=== PATIENT | male | born 1955 | race Caucasian/White ===

== ENCOUNTER 2020-10-17 13:29 | Inpatient (IN) ==
[2020-10-17] MEDS ORDERED: GI COCKTAIL ED USE PO ONE (13:49)
[2020-10-17] MEDS ORDERED: FAMOTIDINE 20MG IV PUSH 20 MG/5 ML SYR IV STA (13:49)
[2020-10-17] MEDS ORDERED: SODIUM CHLORIDE 0.9% 1000ML 1,000 ML IV SCH (14:00)
--- NOTE | 2020-10-17 14:05 | Emergency Department Note ---
History of Present Illness General Chief Complaint: Abdominal Pain Stated Complaint: ABD PAIN,LOWER BACK PAIN Time Seen by Provider: 10/17/20 13:37 Source: patient Mode of arrival: ambulatory Limitations: no limitations History of Present Illness Provider Complaint: abdominal pain Onset (ago): 1 week(s) Pain Consistency: constant Location: epigastric Radiation: back Migration to: no migration Severity: moderate Maximum Pain Intensity: 5 Current Pain Intensity: 5 Quality: + cramping and + other (spasms) Relieved By: + nothing Exacerbated By: + eating and + other (bending over, lying flat) Associated Symptoms: + nausea and + anorexia Treatments prior to arrival: none This 64-year-old male patient presents to the emergency department today for evaluation of 1 week long history of intermittent epigastric pain. The patient states his pain is worse with eating, bending over, and lying flat. He states it is like a spasming sensation in his epigastrium. He describes an achiness intermittently when not experiencing spasms. The patient states he has been very thirsty and has had decreased appetite over the past 3 to 4 days. He states earlier today at 1030, he ate half a chicken cheese steak. By 1230, he developed severe epigastric pain which was radiating to his back, then he developed diarrhea. Denies any fever or chills. No history of abdominal surgeries. No history of pancreatitis. The patient does normally drink 3-4 beers per day, but has not had any in 4 to 5 days since his symptoms have been worsening. He has not recently been on any antibiotics. He reports his acid reflux has been really flaring up recently and has not responded to his normal omeprazole. He denies any chest pain or dyspnea. No exertional symptoms. No vomiting or hematemesis. Bowel movements have otherwise been normal. Home Medications Medication Instructions Recorded Confirmed Type omeprazole 20 mg PO DAILY 10/17/20 10/17/20 History Allergies Allergy/AdvReac Type Severity Reaction Status Date / Time Penicillins Allergy HIVES Verified 10/17/20 15:33 Past Med/Surg History Medical History (Updated 10/17/20 @ 17:12 by Jeniffer Alamo PA-C) GERD (gastroesophageal reflux disease) Hypertension Surgical History (Updated 10/17/20 @ 17:32 by GERDA Jackson) No significant past surgical history Social History (Updated 10/17/20 @ 14:04 by Jeniffer Alamo PA-C) Smoking Status: Never smoker Hx Alcohol Use: Yes Alcohol type: beer Alcohol Intake Frequency: 4 or More x per/Week Alcohol Intake Frequency Comment: 3-4 beers/day Preferred Language: Lao Feels Safe at Home: Yes Review of Systems A total of 10 systems reviewed and were otherwise negative Physical Exam Vital Signs: Vital Signs - 24 hr 10/17/20 13:30 10/17/20 14:31 10/17/20 14:34 Temperature 36.9 C Temperature Source Oral Pulse Rate 129 H 111 H Pulse Rate [Apical ] 110 H Pulse Rate from Sp O2 Sensor Pulse Rhythm Regular Pulse Rhythm [Apic al] Pulse Strength Normal Pulse Strength [Ap ical] Respiratory Rate 16 20 20 Respiratory Effort / Characteristics Non-Labored Non-Labored Sponta neous Respiratory Depth Normal Normal Respiratory Patter n Regular Regular Blood Pressure 213/103 H Blood Pressure [Ri ght Arm] 193/147 H Blood Pressure Lorraine n 139 Blood Pressure Lorraine n [Right Arm] 162 Blood Pressure Pos ition Sitting Blood Pressure Pos ition [Right Arm] Pulse Oximetry 98 99 99 Oxygen Delivery Me thod Room Air Room Air Room Air Oxygen Flow Rate Sepsis Recent Feve r Within 48 Hours No Sepsis New/Unexpla ined Change in Men amish Status N/A Sepsis Action Take n by Nursing No Action Required 10/17/20 14:36 10/17/20 14:39 10/17/20 14:55 Temperature Temperature Source Pulse Rate 110 H 107 H 138 H Pulse Rate [Apical ] Pulse Rate from Sp O2 Sensor 111 H 105 H 138 H Pulse Rhythm Pulse Rhythm [Apic al] Pulse Strength Pulse Strength [Ap ical] Respiratory Rate 17 18 17 Respiratory Effort / Characteristics Respiratory Depth Respiratory Patter n Blood Pressure 210/120 H 192/135 H Blood Pressure [Ri ght Arm] Blood Pressure Lorraine n 139 155 Blood Pressure Lorraine n [Right Arm] Blood Pressure Pos ition Blood Pressure Pos ition [Right Arm] Pulse Oximetry 98 98 100 Oxygen Delivery Me thod Oxygen Flow Rate Sepsis Recent Feve r Within 48 Hours Sepsis New/Unexpla ined Change in Men amish Status Sepsis Action Take n by Nursing 10/17/20 14:56 10/17/20 14:58 10/17/20 15:00 Temperature Temperature Source Pulse Rate 122 H 117 H Pulse Rate [Apical ] 120 H Pulse Rate from Sp O2 Sensor 123 H 115 H Pulse Rhythm Pulse Rhythm [Apic al] Pulse Strength Pulse Strength [Ap ical] Respiratory Rate 22 16 20 Respiratory Effort / Characteristics Respiratory Depth Respiratory Patter n Blood Pressure 201/115 H 205/123 H Blood Pressure [Ri ght Arm] 201/115 H Blood Pressure Lorraine n 150 138 Blood Pressure Lorraine n [Right Arm] 143 Blood Pressure Pos ition Blood Pressure Pos ition [Right Arm] Pulse Oximetry 100 100 100 Oxygen Delivery Me thod Nasal Cannula Oxygen Flow Rate 3 Sepsis Recent Feve r Within 48 Hours Sepsis New/Unexpla ined Change in Men amish Status Sepsis Action Take n by Nursing 10/17/20 15:01 10/17/20 15:05 10/17/20 15:10 Temperature Temperature Source Pulse Rate 109 H 115 H 113 H Pulse Rate [Apical ] Pulse Rate from Sp O2 Sensor 111 H 115 H 113 H Pulse Rhythm Pulse Rhythm [Apic al] Pulse Strength Pulse Strength [Ap ical] Respiratory Rate 17 14 16 Respiratory Effort / Characteristics Respiratory Depth Respiratory Patter n Blood Pressure 209/111 H 210/114 H Blood Pressure [Ri ght Arm] Blood Pressure Lorraine n 153 138 Blood Pressure Lorraine n [Right Arm] Blood Pressure Pos ition Blood Pressure Pos ition [Right Arm] Pulse Oximetry 100 100 100 Oxygen Delivery Me thod Oxygen Flow Rate Sepsis Recent Feve r Within 48 Hours Sepsis New/Unexpla ined Change in Men amish Status Sepsis Action Take n by Nursing 10/17/20 15:15 10/17/20 15:22 10/17/20 15:25 Temperature Temperature Source Pulse Rate 114 H 118 H 112 H Pulse Rate [Apical ] Pulse Rate from Sp O2 Sensor 113 H 118 H 111 H Pulse Rhythm Pulse Rhythm [Apic al] Pulse Strength Pulse Strength [Ap ical] Respiratory Rate 17 16 21 Respiratory Effort / Characteristics Respiratory Depth Respiratory Patter n Blood Pressure 197/117 H 213/125 H 190/115 H Blood Pressure [Ri ght Arm] Blood Pressure Lorraine n 143 167 138 Blood Pressure Lorraine n [Right Arm] Blood Pressure Pos ition Blood Pressure Pos ition [Right Arm] Pulse Oximetry 100 100 100 Oxygen Delivery Me thod Oxygen Flow Rate Sepsis Recent Feve r Within 48 Hours Sepsis New/Unexpla ined Change in Men amish Status Sepsis Action Take n by Nursing 10/17/20 15:30 10/17/20 15:31 10/17/20 15:35 Temperature Temperature Source Pulse Rate 101 H 101 H 100 H Pulse Rate [Apical ] 99 H Pulse Rate from Sp O2 Sensor 102 H 100 H 100 H Pulse Rhythm Pulse Rhythm [Apic al] Regular Pulse Strength Pulse Strength [Ap ical] Normal Respiratory Rate 19 18 20 Respiratory Effort / Characteristics Non-Labored Sponta neous Respiratory Depth Normal Respiratory Patter n Blood Pressure 190/113 H 182/109 H Blood Pressure [Ri ght Arm] 182/109 H Blood Pressure Lorraine n 143 136 Blood Pressure Lorraine n [Right Arm] 133 Blood Pressure Pos ition Blood Pressure Pos ition [Right Arm] Sitting Pulse Oximetry 100 100 100 Oxygen Delivery Me thod Nasal Cannula Oxygen Flow Rate 3 Sepsis Recent Feve r Within 48 Hours Sepsis New/Unexpla ined Change in Men amish Status Sepsis Action Take n by Nursing 10/17/20 15:40 10/17/20 15:45 10/17/20 15:52 Temperature Temperature Source Pulse Rate 103 H 113 H 103 H Pulse Rate [Apical ] Pulse Rate from Sp O2 Sensor 103 H 114 H Pulse Rhythm Pulse Rhythm [Apic al] Pulse Strength Pulse Strength [Ap ical] Respiratory Rate 21 20 Respiratory Effort / Characteristics Respiratory Depth Respiratory Patter n Blood Pressure 201/113 H 230/168 H 228/128 H Blood Pressure [Ri ght Arm] Blood Pressure Lorraine n 149 197 150 Blood Pressure Lorraine n [Right Arm] Blood Pressure Pos ition Blood Pressure Pos ition [Right Arm] Pulse Oximetry 100 100 Oxygen Delivery Me thod Oxygen Flow Rate Sepsis Recent Feve r Within 48 Hours Sepsis New/Unexpla ined Change in Men amish Status Sepsis Action Take n by Nursing 10/17/20 15:55 10/17/20 16:00 10/17/20 16:01 Temperature Temperature Source Pulse Rate 101 H 104 H 104 H Pulse Rate [Apical ] Pulse Rate from Sp O2 Sensor 101 H Pulse Rhythm Pulse Rhythm [Apic al] Pulse Strength Pulse Strength [Ap ical] Respiratory Rate 19 23 18 Respiratory Effort / Characteristics Respiratory Depth Respiratory Patter n Blood Pressure 211/124 H 219/134 H Blood Pressure [Ri ght Arm] Blood Pressure Lorraine n 159 170 Blood Pressure Lorraine n [Right Arm] Blood Pressure Pos ition Blood Pressure Pos ition [Right Arm] Pulse Oximetry 100 Oxygen Delivery Me thod Oxygen Flow Rate Sepsis Recent Feve r Within 48 Hours Sepsis New/Unexpla ined Change in Men amish Status Sepsis Action Take n by Nursing 10/17/20 16:13 10/17/20 16:15 10/17/20 16:20 Temperature Temperature Source Pulse Rate 101 H 102 H 103 H Pulse Rate [Apical ] Pulse Rate from Sp O2 Sensor Pulse Rhythm Pulse Rhythm [Apic al] Pulse Strength Pulse Strength [Ap ical] Respiratory Rate 17 13 16 Respiratory Effort / Characteristics Respiratory Depth Respiratory Patter n Blood Pressure 231/137 H 230/147 H 236/139 H Blood Pressure [Ri ght Arm] Blood Pressure Lorraine n 177 171 159 Blood Pressure Lorraine n [Right Arm] Blood Pressure Pos ition Blood Pressure Pos ition [Right Arm] Pulse Oximetry Oxygen Delivery Me thod Oxygen Flow Rate Sepsis Recent Feve r Within 48 Hours Sepsis New/Unexpla ined Change in Men amish Status Sepsis Action Take n by Nursing 10/17/20 16:25 10/17/20 16:30 10/17/20 16:31 Temperature Temperature Source Pulse Rate 99 H 99 H 98 H Pulse Rate [Apical ] Pulse Rate from Sp O2 Sensor Pulse Rhythm Pulse Rhythm [Apic al] Pulse Strength Pulse Strength [Ap ical] Respiratory Rate 9 L 18 16 Respiratory Effort / Characteristics Respiratory Depth Respiratory Patter n Blood Pressure 210/138 H 227/139 H Blood Pressure [Ri ght Arm] Blood Pressure Lorraine n 153 164 Blood Pressure Lorraine n [Right Arm] Blood Pressure Pos ition Blood Pressure Pos ition [Right Arm] Pulse Oximetry Oxygen Delivery Me thod Oxygen Flow Rate Sepsis Recent Feve r Within 48 Hours Sepsis New/Unexpla ined Change in Men amish Status Sepsis Action Take n by Nursing 10/17/20 16:35 10/17/20 16:40 10/17/20 16:45 Temperature Temperature Source Pulse Rate 100 H 100 H 101 H Pulse Rate [Apical ] Pulse Rate from Sp O2 Sensor Pulse Rhythm Pulse Rhythm [Apic al] Pulse Strength Pulse Strength [Ap ical] Respiratory Rate 14 19 20 Respiratory Effort / Characteristics Respiratory Depth Respiratory Patter n Blood Pressure 226/135 H 227/139 H 212/139 H Blood Pressure [Ri ght Arm] Blood Pressure Lorraine n 167 166 166 Blood Pressure Lorraine n [Right Arm] Blood Pressure Pos ition Blood Pressure Pos ition [Right Arm] Pulse Oximetry Oxygen Delivery Me thod Oxygen Flow Rate Sepsis Recent Feve r Within 48 Hours Sepsis New/Unexpla ined Change in Men amish Status Sepsis Action Take n by Nursing 10/17/20 16:50 Temperature Temperature Source Pulse Rate 100 H Pulse Rate [Apical ] Pulse Rate from Sp O2 Sensor Pulse Rhythm Pulse Rhythm [Apic al] Pulse Strength Pulse Strength [Ap ical] Respiratory Rate 15 Respiratory Effort / Characteristics Respiratory Depth Respiratory Patter n Blood Pressure 227/133 H Blood Pressure [Ri ght Arm] Blood Pressure Lorraine n 148 Blood Pressure Lorraine n [Right Arm] Blood Pressure Pos ition Blood Pressure Pos ition [Right Arm] Pulse Oximetry Oxygen Delivery Me thod Oxygen Flow Rate Sepsis Recent Feve r Within 48 Hours Sepsis New/Unexpla ined Change in Men amish Status Sepsis Action Take n by Nursing Physical Exam: VITALS: Vitals are noted on the nurse's note and reviewed by m yself. Patient is tachycardic and hypertensive. O2 saturation 98% on room air. Temp 36.9 C. GENERAL: This is a 64-year-old white male, in no acute distress, nondiaphoretic, well-developed well-nourished. SKIN: The skin was without rashes, erythema, edema, or bruising. There is no tenting of the skin. Capillary refill less than 2 seconds. HEAD: Normocephalic atraumatic. EYES: Conjunctivae without injection, sclerae without icterus. NECK: Supple without nuchal rigidity. No lymphadenopathy. Cervical spine is nontender. No JVD. HEART: Regular rate and rhythm without murmurs gallops or rubs. LUNGS: Clear to auscultation bilaterally without wheezes, rales or rhonchi. No retractions or accessory muscle use. ABDOMEN: Positive bowel sounds x 4. Normal tympanic percussion. Epigastric tenderness to palpation. Abdomen otherwise soft, nontender, without masses or organomegaly. Anderson sign negative. No guarding or rebound tenderness. No CVA tenderness bilaterally. MUSCULOSKELETAL: No muscle atrophy, erythema, or edema noted. Full range of motion without joint tenderness in all extremities. No tenderness to palpation. Normal gait. Strength 5/5 throughout. NEURO: Patient was alert and oriented to person place and time. No focal neurological deficits. Course Course The patient was seen and evaluated as above. An order was placed for continuous cardiac monitoring. The monitor shows a sinus tachycardia at a rate of 120 beats per minute. IV access obtained, labs drawn. Patient medicated with IV fluids, Zofran, Pepcid, GI cocktail. Chest x-ray performed and reviewed by myself and radiologist as noted. I was notified by Dr. Alvarez that he was called to the room due to significant tachycardia and SVT. He did order adenosine and noted the patient's tachycardia improved from 185 to 130 bpm is a sinus tachycardia. Labs reviewed by myself. We did add a magnesium and TSH at this time. The patient was reassessed. He was given 10 mg IV labetalol due to ongoing hypertension and tachycardia. He is feeling somewhat better at this time, but now complains of spasming in his legs intermittently. I discussed the case with the e commerce manager. I discussed the case with GERDA Jackson with [facility] hospitalist group. She did agree to see and evaluate the patient for admission. She did request that I contact Dr. Talamantes, all purpose clerk, regarding the patient. I did speak with Dr. Talamantes. He did see and evaluate the patient. Please see hospitalist and cardiology dictation regarding ongoing management care of this patient. Administered Medications Discontinued Medications Adenosine (Adenosine Iv Soln 3 Mg/Ml 2 Ml Vial) Confirm Administered Dose 6 mg IV .STK-MED ONE Stop: 10/17/20 14:51 Last Admin: 10/17/20 14:57 Dose: 6 mg Documented by: [id number] Hydrox/Mg Hydrox/Simethicone (Gi Cocktail Ed Use) 1 dose PO ONE ONE Stop: 10/17/20 13:50 Last Admin: 10/17/20 14:30 Dose: 1 dose Documented by: [id number] Sodium Chloride (Nss 1000ml) 1,000 mls @ 999 mls/hr IV .Q1H1M [id number] Stop: 10/17/20 15:00 Last Infusion: 10/17/20 15:29 Dose: 0 mls/hr Documented by: [id number] Admin: 10/17/20 14:30 Dose: 999 mls/hr Documented by: [id number] Famotidine (Pepcid 20mg Iv Push) 20 mg in 5 mls @ 2.5 mls/min IV NOW STA Stop: 10/17/20 13:50 Last Admin: 10/17/20 14:30 Dose: 2.5 mls/min Documented by: [id number] Ioversol (Optiray 320 125ml) 116 ml IV ONCE ONE Stop: 10/17/20 17:18 Last Admin: 10/17/20 17:18 Dose: 116 ml Documented by: [id number] Labetalol HCl (Labetalol Hcl Iv 5 Mg/Ml 20ml) 10 mg IV NOW STA Stop: 10/17/20 15:13 Last Admin: 10/17/20 15:23 Dose: 10 mg Documented by: [id number] Cosigned by: [id number] Labetalol HCl (Labetalol Hcl Iv 5 Mg/Ml 20ml) 10 mg IV NOW STA Stop: 10/17/20 15:56 Last Admin: 10/17/20 16:20 Dose: 10 mg Documented by: [id number] Cosigned by: [id number] Ondansetron HCl (Ondansetron Inj 2 Mg/Ml 2 Ml Vial) Confirm Administered Dose 4 mg .ROUTE .STK-MED ONE Stop: 10/17/20 14:59 Last Admin: 10/17/20 15:00 Dose: 4 mg Documented by: [id number] Ondansetron HCl (Ondansetron Inj 2 Mg/Ml 2 Ml Vial) 4 mg IV NOW STA Stop: 10/17/20 15:00 Last Admin: 10/17/20 15:00 Dose: Not Given Documented by: [id number] Medical Decision Making Differential Diagnosis + peptic ulcer disease, + biliary pathology, + UTI, + obstruction, + mesenteric ischemia, + aortic pathology, + infections, + inflammatory bowel disease, + renal colic, + torsion (male), + epididymitis (male), + pelvic inflammatory disease (female), + abdominal pain, + appendicitis, + calculus of kidney, + constipation, + diverticulitis, + gastroenteritis, + pancreatitis and + small bowel obstruction cardiac etiology, among others were considered. Medical Records Attestation: I reviewed the patient's medical records. Home Medications Current Medication List: was personally reviewed by me Laboratory Data Attestation: I reviewed the patient's lab results. No leukocytosis, anemia, thrombocytopenia. Renal, hepatic function, and electrolytes without significant abnormality. Troponin negative. Lipase 207. Urinalysis negative for blood or evidence of infection. Trace ketones. Covid antigen testing negative. Result diagrams: 10/17/20 14:22 10/17/20 16:50 Lab Results 10/17/20 10/17/20 10/17/20 Range/Units 14:22 14:22 15:20 WBC 3.36 L (4.8-10.8) K/uL RBC 4.58 L (4.7-6.1) M/uL Hgb 14.5 (14.0-18.0) g/dL Hct 41.2 L (42-52) % MCV 90.0 (80-100) fL MCH 31.7 (25-34) pg MCHC 35.2 (32-36) g/dL RDW Std Deviation 41.8 (36.4-46.3) fL RDW Coeff of Indu 12.7 (11.5-14.5) % Plt Count 160 (130-400) K/uL MPV 11.7 H (7.4-10.4) fL Immature Gran % (Auto) 0.0 % Neut % (Auto) 59.2 % Lymph % (Auto) 27.7 % [place] % (Auto) 12.5 % Eos % (Auto) 0.3 % Baso % (Auto) 0.3 % Neut # (Auto) 1.99 (1.4-6.5) K/uL Lymph # (Auto) 0.93 L (1.2-3.4) K/uL [place] # (Auto) 0.42 (0.11-0.59) K/uL Eos # (Auto) 0.01 (0-0.5) K/uL Baso # (Auto) 0.01 (0-0.2) K/uL Immature Gran # (Auto) 0.00 (0.00-0.02) K/uL Sodium 137 (136-145) mmol/L Potassium (3.5-5.1) mmol/L Chloride 108 H (98-107) mmol/L Carbon Dioxide 21 (21-32) mmol/L Anion Gap 8.0 (3-11) BUN 21 H (7-18) mg/dl Creatinine 1.20 (0.6-1.4) mg/dl Est Cr Clr Drug Dosing 73.5 ml/min Est GFR ( Amer) 74.1 Est GFR (Non-Af Amer) 64.0 BUN/Creatinine Ratio 17.4 (10-20) Glucose 132 H (70-99) mg/dl Lactate (0.4-2.0) mmol/L Uric Acid (2.6-7.2) mg/dl Calcium 8.4 L (8.5-10.1) mg/dl Magnesium (1.8-2.4) mg/dl Total Bilirubin 0.5 (0.2-1) mg/dl AST (15-37) U/L ALT 41 (12-78) U/L Alkaline Phosphatase 84 (45-117) U/L Troponin I < 0.015 (0-0.045) ng/ml Total Protein 7.5 (6.4-8.2) gm/dl Albumin 3.3 L (3.4-5.0) gm/dl Globulin 4.2 H (2.5-4.0) gm/dl Albumin/Globulin Ratio 0.8 L (0.9-2) Lipase 207 (73-393) U/L TSH (0.300-4.500) uIu/ml Urine Color Yellow Urine Appearance Clear (Clear) Urine pH 5.5 (4.5-7.5) Ur Specific [place] 1.014 (1.000-1.030) Urine Protein Negative (Negative) Urine Glucose (UA) Negative (Negative) Urine Ketones Trace H (Negative) Urine Blood Negative (Negative) Urine Nitrite Negative (Negative) Urine Bilirubin Negative (Negative) Urine Urobilinogen Negative (Negative) Ur Leukocyte Esterase Negative (Negative) SARS-CoV-2 Ag (Rapid) (Negative) 10/17/20 10/17/20 10/17/20 Range/Units 16:01 16:50 16:50 WBC (4.8-10.8) K/uL RBC (4.7-6.1) M/uL Hgb (14.0-18.0) g/dL Hct (42-52) % MCV (80-100) fL MCH (25-34) pg MCHC (32-36) g/dL RDW Std Deviation (36.4-46.3) fL RDW Coeff of Indu (11.5-14.5) % Plt Count (130-400) K/uL MPV (7.4-10.4) fL Immature Gran % (Auto) % Neut % (Auto) % Lymph % (Auto) % [place] % (Auto) % Eos % (Auto) % Baso % (Auto) % Neut # (Auto) (1.4-6.5) K/uL Lymph # (Auto) (1.2-3.4) K/uL [place] # (Auto) (0.11-0.59) K/uL Eos # (Auto) (0-0.5) K/uL Baso # (Auto) (0-0.2) K/uL Immature Gran # (Auto) (0.00-0.02) K/uL Sodium (136-145) mmol/L Potassium 3.6 (3.5-5.1) mmol/L Chloride (98-107) mmol/L Carbon Dioxide (21-32) mmol/L Anion Gap (3-11) BUN (7-18) mg/dl Creatinine (0.6-1.4) mg/dl Est Cr Clr Drug Dosing ml/min Est GFR ( Amer) Est GFR (Non-Af Amer) BUN/Creatinine Ratio (10-20) Glucose (70-99) mg/dl Lactate (0.4-2.0) mmol/L Uric Acid 5.6 (2.6-7.2) mg/dl Calcium (8.5-10.1) mg/dl Magnesium 1.8 (1.8-2.4) mg/dl Total Bilirubin (0.2-1) mg/dl AST (15-37) U/L ALT (12-78) U/L Alkaline Phosphatase (45-117) U/L Troponin I (0-0.045) ng/ml Total Protein (6.4-8.2) gm/dl Albumin (3.4-5.0) gm/dl Globulin (2.5-4.0) gm/dl Albumin/Globulin Ratio (0.9-2) Lipase (73-393) U/L TSH 1.040 (0.300-4.500) uIu/ml Urine Color Urine Appearance (Clear) Urine pH (4.5-7.5) Ur Specific [place] (1.000-1.030) Urine Protein (Negative) Urine Glucose (UA) (Negative) Urine Ketones (Negative) Urine Blood (Negative) Urine Nitrite (Negative) Urine Bilirubin (Negative) Urine Urobilinogen (Negative) Ur Leukocyte Esterase (Negative) SARS-CoV-2 Ag (Rapid) Negative (Negative) 10/17/20 Range/Units 16:50 WBC (4.8-10.8) K/uL RBC (4.7-6.1) M/uL Hgb (14.0-18.0) g/dL Hct (42-52) % MCV (80-100) fL MCH (25-34) pg MCHC (32-36) g/dL RDW Std Deviation (36.4-46.3) fL RDW Coeff of Indu (11.5-14.5) % Plt Count (130-400) K/uL MPV (7.4-10.4) fL Immature Gran % (Auto) % Neut % (Auto) % Lymph % (Auto) % [place] % (Auto) % Eos % (Auto) % Baso % (Auto) % Neut # (Auto) (1.4-6.5) K/uL Lymph # (Auto) (1.2-3.4) K/uL [place] # (Auto) (0.11-0.59) K/uL Eos # (Auto) (0-0.5) K/uL Baso # (Auto) (0-0.2) K/uL Immature Gran # (Auto) (0.00-0.02) K/uL Sodium (136-145) mmol/L Potassium (3.5-5.1) mmol/L Chloride (98-107) mmol/L Carbon Dioxide (21-32) mmol/L Anion Gap (3-11) BUN (7-18) mg/dl Creatinine (0.6-1.4) mg/dl Est Cr Clr Drug Dosing ml/min Est GFR ( Amer) Est GFR (Non-Af Amer) BUN/Creatinine Ratio (10-20) Glucose (70-99) mg/dl Lactate (0.4-2.0) mmol/L Uric Acid (2.6-7.2) mg/dl Calcium (8.5-10.1) mg/dl Magnesium (1.8-2.4) mg/dl Total Bilirubin (0.2-1) mg/dl AST (15-37) U/L ALT (12-78) U/L Alkaline Phosphatase (45-117) U/L Troponin I (0-0.045) ng/ml Total Protein (6.4-8.2) gm/dl Albumin (3.4-5.0) gm/dl Globulin (2.5-4.0) gm/dl Albumin/Globulin Ratio (0.9-2) Lipase (73-393) U/L TSH (0.300-4.500) uIu/ml Urine Color Urine Appearance (Clear) Urine pH (4.5-7.5) Ur Specific [place] (1.000-1.030) Urine Protein (Negative) Urine Glucose (UA) (Negative) Urine Ketones (Negative) Urine Blood (Negative) Urine Nitrite (Negative) Urine Bilirubin (Negative) Urine Urobilinogen (Negative) Ur Leukocyte Esterase (Negative) SARS-CoV-2 Ag (Rapid) (Negative) Imaging Data Radiologist's Impression: XR chest 1V portable HISTORY: epigastric pain COMPARISON: None. FINDINGS: Cardiac silhouette is borderline enlarged. No pleural effusions. No pneumothorax. Questionable faint peripheral densities within the mid lung zones may be due to the overlapping ribs. No evidence for pulmonary edema. IMPRESSION: Questionable faint peripheral densities within the mid lung zones may be due to the overlapping ribs. Consider follow-up PA and lateral views the chest for further evaluation. ACT 112: Negative or not required by law. Electronically signed by: Handy Castorena M.D. 10/17/2020 3:27 PM ECG Data Attestation: I personally reviewed and interpreted this ECG as follows: Indication: abdominal pain Rate (beats per minute): 119 Rhythm: sinus tachycardia Findings: + PAC; no ST depression, no T-wave inversion, no ST elevation and no acute ischemic change Comparison ECG Date: no prior available Additional Comments: Repeat EKGs with SVT noted in the 180s. Sinus tachycardia in the 130s after administration of adenosine. Blood Pressure Blood Pressure Findings: Elevated blood pressure Blood Pressure Disposition: further management by hospitalist ALFRED Narrative This 64-year-old male patient presents to the emergency department today for evaluation of epigastric pain. Symptoms have been ongoing and intermittent for the past 1 week. They are worse with certain position changes as well as with eating. Pain is in the epigastrium and radiates into the back. It did seem to worsen today. Given the history, additional concern was for GI etiology. Early on in the patient's emergency department stay, he did become extremely tachycardic, EKG consistent with SVT. Patient was given adenosine which did improve the rate to 130s after this episode. Patient's hypertension and tachycardia were then treated with IV labetalol. The hospitalist as well as all purpose clerk were consulted at this time. There is question of possible atrial fibrillation/atrial flutter as well as splenic or mesenteric embolic event. There is also question of COVID-19 contributing, due to cold-like symptoms. The patient will be admitted to the hospitalist service. Please see hospitalist as well as cardiology dictation regarding ongoing management care of this patient. The chart was completed utilizing [employer] Speech voice recognition software. Grammatical errors, random word insertions, pronoun errors, and incomplete sentences are an occasional consequence of this system due to software limitations, ambient noise, and hardware issues. Any formal questions or concerns about the content, text, or information contained within the body of this dictation should be directly addressed to the provider for clarification. --- Attending Attestation: Lorin Alvarez MD independently saw and evaluated this patient and agree with history and physical is otherwise documented by the physician bar assistant. See their note for full details. Was called to the room by nursing staff p atient was significantly tachycardic and an EKG was completed. Additional IV access was obtained. Given IV fluid bolus. Discussed with the patient and adenosine was given for apparent SVT as detailed below by myself. Patient was complaining of some fluttering sensation mainly in his stomach at this point and was significantly hypertensive. 6 mg of adenosine was used and appeared to somewhat slow his rate to a sinus tachycardia rarely irregular into the 120s and 130s. Patient did have some nausea & given some Zofran. Given iv labetalol for significant hypertension with blood pressure greater than 200. Patient still has some complaint of some fluttering in his abdomen and his thighs at various points after adenosine. Heart rate further improved with labetalol. Later patient requested uric acid testing and possible lupus testing. Will defer to the inpatient team. Made physician bar assistant aware of SVT episode and resultant care. She discussed with hospitalist team and all purpose clerk And continued primary care after this. The patient will be admitted. Lower suspicion for acute biliary process at this time or perforation believe likely 2/2 cardiac issues. ED procedure: Chemical cardioversion, performed by myself Ananya Alvarez Indication: SVT In a standard fashion, patient was placed on cardiac full monitor and monitor defibrillation pads were placed on the patient. Patient was significantly hypertensive and tachycardic in the 180s what appeared to be a regular rhythm co nsistent with SVT. Patient had 2 IVs established receiving IV fluid bolus of normal saline. Discussed with the patient risks and benefits and verbal consent obtained to proceed with chemical cardioversion procedure. 6 mg of adenosine was administered x1. Patient's heart rate slowed into the 120s-130s what appears to be a sinus tachycardia with rare PVC. Did not clearly see any flutter waves during any point during the procedure. Slight nausea afterwards and did complain of some pressure during adenosine slowing period. No other apparent complication. Critical Care I have personally spent 31 minutes of critical care time in the direct management of this patient. This includes bedside care, interpretation of diagnostic studies, and testing, discussion with consultants, patient, and family members, and other required patient management activities. These 31 minutes is in excess of all separately billable procedures. Impression & Plan PSVT (paroxysmal supraventricular tachycardia), Hypertensive emergency, Abdominal pain Discharge Plan Visit Data Chief Complaint: Abdominal Pain Stated Complaint: ABD PAIN,LOWER BACK PAIN ED Provider: Cory Avlarez ED Midlevel Provider: Jeniffer Alamo Discharge Problem: PSVT (paroxysmal supraventricular tachycardia), Hypertensive emergency, Abdominal pain Patient Disposition: Admitted As Inpatient Forms Stand Alone Forms: [facility] Prescriptions Prescriptions: No Action omeprazole 20 mg Tablet,Delayed Release (Dr/Ec) 20 mg PO DAILY RF: 0 Referrals Referrals: Karthik Davis MD [Primary Care Provider] - Discharge Problem: Abdominal pain Qualifiers: Abdominal location: epigastric Qualified Code(s): R10.13 - Epigastric pain
[2020-10-17 14:34] LABS: Basophils # (auto) 0.01 K/uL (0-0.2); Basophils % (auto) 0.3 %; Eosinophils # (auto) 0.01 K/uL (0-0.5); Eosinophils % (auto) 0.3 %; Hematocrit (blood only) 41.2 % (42-52); Hemoglobin 14.5 g/dL (14.0-18.0); Lymphocytes # (auto) 0.93 K/uL (1.2-3.4); Lymphocytes % (auto) 27.7 %; Mean Corpuscular Hemoglobin 31.7 pg (25-34); Mean Corpuscular Hgb Conc 35.2 g/dL (32-36); Mean Platelet Volume 11.7 fL (7.4-10.4); Monocytes # (auto) 0.42 K/uL (0.11-0.59); Monocytes % (auto) 12.5 %; Neutrophils # (auto) 1.99 K/uL (1.4-6.5); Neutrophils % (auto) 59.2 %; Platelet Count 160 K/uL (130-400); RDW Coefficient of Variation 12.7 % (11.5-14.5); RDW Standard Deviation 41.8 fL (36.4-46.3); Red Blood Count 4.58 M/uL (4.7-6.1); White Blood Count 3.36 K/uL (4.8-10.8)
[2020-10-17] MEDS ORDERED: ADENOSINE IV SOLN 3 MG/ML 2 ML VIAL IV ONE (14:50)
[2020-10-17 14:52] LABS: Alanine Aminotransferase 41 U/L (12-78); Albumin Level 3.3 gm/dl (3.4-5.0); BUN Creatinine Ratio 17.4 (10-20); Blood Urea Nitrogen 21 mg/dl (7-18); Calcium 8.4 mg/dl (8.5-10.1); Carbon Dioxide 21 mmol/L (21-32); Chloride 108 mmol/L (98-107); Creatinine Clr Calc Pharmacy 73.5 ml/min; Est GFR (African American) 74.1; Glucose 132 mg/dl (70-99); Lipase 207 U/L (73-393); Sodium 137 mmol/L (136-145)
[2020-10-17 14:57] LABS: Albumin Globulin Ratio 0.8 (0.9-2); Alkaline Phosphatase 84 U/L (45-117); Bilirubin,Total 0.5 mg/dl (0.2-1); Globulin 4.2 gm/dl (2.5-4.0); Total Protein 7.5 gm/dl (6.4-8.2); Troponin I < 0.015 ng/ml (0-0.045)
[2020-10-17] MEDS ORDERED: ONDANSETRON INJ 2 MG/ML 2 ML VIAL ONE (14:58)
[2020-10-17] MEDS ORDERED: ONDANSETRON INJ 2 MG/ML 2 ML VIAL IV STA (14:59)
[2020-10-17] MEDS ORDERED: LABETALOL HCL IV 5 MG/ML 20ML IV STA ×2 (15:12→15:55)
--- NOTE | 2020-10-17 15:28 | XRay Report ---
XR chest 1V portable HISTORY: epigastric pain COMPARISON: None. FINDINGS: Cardiac silhouette is borderline enlarged. No pleural effusions. No pneumothorax. Questiona ble faint peripheral densities within the mid lung zones may be due to the overlapping ribs. No evide nce for pulmonary edema. IMPRESSION: Questionable faint peripheral densities within the mid lung zones may be due to the overlapping ribs. Consider follow-up PA and lateral views the chest for further evaluation. ACT 112: Negative or not required by law. Electronically signed by: Handy Castorena M.D. 10/17/2020 3:27 PM
[2020-10-17 15:42] LABS: Appearance Urine Clear (Clear); Bilirubin Urine Negative (Negative); Blood Urine Negative (Negative); Color Urine Yellow; Glucose Urine UA Negative (Negative); Ketones Urine Trace (Negative); Leukocyte Esterase Urine Negative (Negative); Nitrite Urine Negative (Negative); Protein Urine Negative (Negative); Specific Gravity Urine 1.014 (1.000-1.030); Urobilinogen Urine Negative (Negative); pH Urine 5.5 (4.5-7.5)
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
[2020-10-17] MEDS ORDERED: OPTIRAY 320 125ml IV ONE (17:17)
--- NOTE | 2020-10-17 17:18 | Electrocardiogram Report ---
Test Reason : Blood Pressure : / mmHG Vent. Rate : 119 BPM Atrial Rate : 119 BPM P-R Int : 166 ms QRS Dur : 084 ms QT Int : 322 ms P-R-T Axes : 063 063 049 degrees QTc Int : 452 ms Sinus tachycardia with Premature atrial complexes Left atrial enlargement Abnormal ECG No previous ECGs available Confirmed by Juan Donovan ([id number]) on 10/17/2020 5:17:49 PM Referred By: REFERRED SELF Confirmed By:Juan Donovan
--- NOTE | 2020-10-17 17:20 | Electrocardiogram Report ---
Test Reason : Blood Pressure : / mmHG Vent. Rate : 185 BPM Atrial Rate : 182 BPM P-R Int : 000 ms QRS Dur : 076 ms QT Int : 256 ms P-R-T Axes : 000 075 -71 degrees QTc Int : 449 ms Poor data quality, interpretation may be adversely affected Supraventricular tachycardia ST depression in multiple leads, may be rate related Abnormal ECG When compared with ECG of 17-OCT-2020 14:22, Premature atrial complexes are no longer Present Vent. rate has increased BY [address] more depressed Confirmed by Juan Donovan ([id number]) on 10/17/2020 5:20:42 PM Referred By: REFERRED SELF Confirmed By:Juan Donovan
--- NOTE | 2020-10-17 17:22 | Electrocardiogram Report ---
Test Reason : Blood Pressure : / mmHG Vent. Rate : 184 BPM Atrial Rate : 174 BPM P-R Int : 000 ms QRS Dur : 078 ms QT Int : 260 ms P-R-T Axes : 000 076 -62 degrees QTc Int : 455 ms Atrial fibrillation with rapid ventricular response ST depression in multiple leads, may be rate related Abnormal ECG When compared with ECG of 17-OCT-2020 14:49, Rhythm now appears most consistent with atrial fibrillation (rahter than SVT) Confirmed by Juan Donovan ([id number]) on 10/17/2020 5:22:29 PM Referred By: REFERRED SELF Confirmed By:Juan Donovan
--- NOTE | 2020-10-17 17:23 | Electrocardiogram Report ---
Test Reason : Blood Pressure : / mmHG Vent. Rate : 132 BPM Atrial Rate : 132 BPM P-R Int : 150 ms QRS Dur : 086 ms QT Int : 298 ms P-R-T Axes : 058 064 034 degrees QTc Int : 441 ms Sinus tachycardia Nonspecific ST abnormality Abnormal ECG When compared with ECG of 17-OCT-2020 14:51, Sinus rhythm has replaced Atrial fibrillation ST less depressed in Anterior leads Confirmed by Juan Donovan ([id number]) on 10/17/2020 5:22:57 PM Referred By: REFERRED SELF Confirmed By:Juan Donovan
[2020-10-17 17:33] LABS: Magnesium 1.8 mg/dl (1.8-2.4); Thyroid Stimulating Hormone 1.04 uIu/ml (0.300-4.500); Uric Acid 5.6 mg/dl (2.6-7.2)
--- NOTE | 2020-10-17 17:43 | History & Physical Report ---
Date of Service October 17, 2020 Assessment & Plan (1) Hypertensive emergency: -Admit to ICU -Patient presenting from home with reports of fatigue and epigastric abdominal pain -History of hypertension however has not seen a healthcare provider in several years and self stopped amlodipine -In the ED, systolic blood pressures persistently elevated > 200 despite IV labetalol -Start nicardipine drip -P.o. metoprolol tartrate 25 mg every 6 hours, amlodipine 5 mg daily -start now -Case discussed with Dr. Anderson (2) PSVT (paroxysmal supraventricular tachycardia): -While in the ED, developed narrow complex tachycardia with rate of 185 -SVT versus atrial fibrillation/flutter -Received adenosine 6 mg IV and labetalol 10 mg IV -Heart rate remains ~ 100 -Starting PO metoprolol as above -Hold on systemic anticoagulation for now -Initial troponin negative, continue to trend -Echo -Cardiology consult, case discussed with Dr. Talamantes (3) Abdominal pain: -CTA ABD/pelvis negative for acute intra-abdominal findings -Lactate 1.2, lipase 207, LFTs WNL -Check RUQ US -Continue home PPI (4) COVID-19: -CTA ABD/pelvis noted bibasilar groundglass opacities consistent with COVID-19 infection -COVID-19 PCR positive -Currently saturating 96% on room air, does not meet criteria for dexamethasone or remdesivir -Check D-dimer (unable to do CTA chest today if positive given dye load for CTA ABD/pelvis this evening), ferritin, CRP, ESR, blood cultures -Continue to monitor closely (5) Osteochondroma: -Large pedunculated bony excrescence suggestive of an osteochondroma involves the proximal left femur noted on CTA abd/pelvis -Outpatient follow-up (6) DVT prophylaxis: -SQ Lovenox History of Present Illness Chief Complaint: Abdominal pain Primary Care Provider: Karthik Davis MD 64-year-old male with PMH dyslipidemia, HTN, GERD, and other problems listed below who presents to the ED for evaluation of abdominal pain. Patient has not been seen by a medical provider in the past several years. Previously had been prescribed atorvastatin and amlodipine however has not taken them for "quite a long time". Patient reports feeling sick for the past 1 week. Reports generalized fatigue, chills, muscle aches. 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 Patient also reports intermittent abdominal "quivering". He has had some nausea and poor appetite. Reports one episode of diarrhea this morning. He ate a chicken cheese steak around 1030 and shortly after, developed epigastric pain that radiated into his back. Patient denies chest pain and palpitations. No shortness of breath, cough, sputum production. No lightheadedness, dizziness, diaphoresis, syncopal events. Denies urinary symptoms. While in the ED, patient developed narrow complex tachycardia with rate 185. He was also found to be significantly hypertensive with systolic blood pressures > 200. Patient received adenosine 6 mg IV and labetalol 10 mg IV with some improvement in heart rate however no improvement in blood pressure. Patient received an additional dose of labetalol 10 mg IV and blood pressure remains elevated. Patient will be started on nicardipine drip and transferred to ICU for further management. Allergies Allergy/AdvReac Type Severity Reaction Status Date / Time Penicillins Allergy HIVES Verified 10/17/20 15:33 Home Medications Medication Instructions Recorded Confirmed Type omeprazole 20 mg PO DAILY 10/17/20 10/17/20 History Past Med/Surg History Medical History GERD (gastroesophageal reflux disease) Hypertension Surgical History No significant past surgical history Family History Father Heart disorder Social History Smoking Status: Never smoker Hx Alcohol Use: Yes Alcohol type: beer Alcohol Intake Frequency: 4 or More x per/Week Alcohol Intake Frequency Comment: 3-4 beers/day Preferred Language: Mexican Feels Safe at Home: Yes Review of Systems Review of Systems: ROS per HPI, all other systems reviewed and negative Physical Exam Constitutional: WD/WN, vitals as above Eyes: PERRL, conjunctivae normal, anicteric sclerae ENMT: external ear and nose normal, oropharynx normal Respiratory: normal respiratory effort, lungs clear to auscultation Cardiovascular: Rate/Rhythm: regular rhythm and + tachycardic Vessels: normal peripheral pulses Extremities: no edema Gastrointestinal (Abdomen): normal bowel sounds, soft, nontender, no hepatosplenomegaly Musculoskeletal: no cyanosis or clubbing, extremities motor strength 5/5 Skin: no rashes, warm and dry Neurologic: PERRL, EOMI, accommodation nl, no face palsy, no dysarthria Psychiatric: A+Ox3, euthymic affect Results & Data Results & Data ([facility]) Vital Signs (Past 12 Hours) Vital Signs Temp Pulse Pulse Resp BP BP Pulse Ox 10/17/20 16:50 100 H 15 227/133 H 10/17/20 16:45 101 H 20 212/139 H 10/17/20 16:40 100 H 19 227/139 H 10/17/20 16:35 100 H 14 226/135 H 10/17/20 16:31 98 H 16 10/17/20 16:30 99 H 18 227/139 H 10/17/20 16:25 99 H 9 L 210/138 H 10/17/20 16:20 103 H 16 236/139 H 10/17/20 16:15 102 H 13 230/147 H 10/17/20 16:13 101 H 17 231/137 H 10/17/20 16:01 104 H 18 10/17/20 16:00 104 H 23 219/134 H 10/17/20 15:55 101 H 19 211/124 H 100 10/17/20 15:52 103 H 20 228/128 H 10/17/20 15:45 113 H 230/168 H 100 10/17/20 15:40 103 H 21 201/113 H 100 10/17/20 15:35 100 H 99 H 20 182/109 H 182/109 H 100 10/17/20 15:31 101 H 18 100 10/17/20 15:30 101 H 19 190/113 H 100 10/17/20 15:25 112 H 21 190/115 H 100 10/17/20 15:22 118 H 16 213/125 H 100 10/17/20 15:15 114 H 17 197/117 H 100 10/17/20 15:10 113 H 16 210/114 H 100 10/17/20 15:05 115 H 14 209/111 H 100 10/17/20 15:01 109 H 17 100 10/17/20 15:00 117 H 20 205/123 H 100 10/17/20 14:58 120 H 16 201/115 H 100 10/17/20 14:56 122 H 22 201/115 H 100 10/17/20 14:55 138 H 17 192/135 H 100 10/17/20 14:39 107 H 18 98 10/17/20 14:36 110 H 17 210/120 H 98 10/17/20 14:34 110 H 20 193/147 H 99 10/17/20 14:31 111 H 20 99 10/17/20 13:30 36.9 C 129 H 16 213/103 H 98 Laboratory Results Short CBC 10/17/20 Range/Units 14:22 WBC 3.36 L (4.8-10.8) K/uL Hgb 14.5 (14.0-18.0) g/dL Hct 41.2 L (42-52) % Plt Count 160 (130-400) K/uL BMP 10/17/20 10/17/20 14:22 16:50 Sodium 137 Potassium 3.6 Chloride 108 H Carbon Dioxide 21 BUN 21 H Creatinine 1.20 Glucose 132 H Calcium 8.4 L Cardiac Enzymes 10/17/20 Range/Units 14:22 Troponin I < 0.015 (0-0.045) ng/ml Liver Function 10/17/20 Range/Units 14:22 Total Bilirubin 0.5 (0.2-1) mg/dl AST (15-37) U/L ALT 41 (12-78) U/L Alkaline Phosphatase 84 (45-117) U/L Albumin 3.3 L (3.4-5.0) gm/dl Urine 10/17/20 Range/Units 15:20 Urine Color Yellow Urine Appearance Clear (Clear) Urine pH 5.5 (4.5-7.5) Ur Specific [place] 1.014 (1.000-1.030) Urine Protein Negative (Negative) Urine Glucose (UA) Negative (Negative) Diagnostic Findings CXR IMPRESSION: Questionable faint peripheral densities within the mid lung zones may be due to the overlapping ribs. Consider follow-up PA and lateral views the chest for further evaluation. CTA ABD/PELVIS IMPRESSION: 1. Moderate mixed plaque of the abdominal aorta without aneurysm or dissection. 2. Moderate luminal narrowing at the origin of the inferior mesenteric artery. No high-grade stenosis or arterial occlusion identified. 3. Partially imaged mild patchy bibasilar groundglass densities of the basal right lower lobe are suspicious for infectious or inflammatory pneumonitis. Correlate with Covid status. 4. No bowel obstruction or bowel wall thickening. Normal appendix. 5. Colonic diverticulosis. 6. Large pedunculated bony excrescence suggestive of an osteochondroma involves the proximal left femur. Code Status & VTE Plan VTE Prophylaxis Plan VTE Prophylaxis will be ordered: Yes Supervising Physician Co-Signing Physician Notes Attending addendum The patient was seen and examined in emergency room He is a 64-year-old male with significant past medical history of hypertension without any continued medications and GERD apparently has been complaining of generalized fatigue and muscle aches for the last 1 week He also did have some nonspecific epigastric/right upper quadrant discomfort He was noted to have very high blood pressure in the emergency room that required nicardipine drip to control the blood pressure Apparently he was also noted to be Covid positive On examination Remains very anxious about the diagnosis of Covid Blood pressure is holding around 140 systolic and heart rate below 100 since on nicardipine Chest-clear to auscultate bilaterally Heart-S1-S2, regular. No murmur appreciated Abdomen-benign, nontender, bowel sounds present Extremities-negative for any edema His admission labs, EKG and imaging studies reviewed CT scan of the abdomen and pelvis did show mild patchy bibasilar groundglass densities suggestive of viral pneumonitis EKG showed paroxysmal atrial fibrillation/tachycardia Has hypertensive urgency and is requiring intravenous nicardipine to control the blood pressure and was admitted to ICU Remains asymptomatic for COVID-19 infection-did not receive any medications to treat Covid-19 Also history of alcohol abuse about 4-5 beers a day-could have alcohol withdrawal in the form of tachycardia and the patient is has been under withdrawal protocol without any gabapentin for now Agree with assessment plan as outlined above by Nereyda LORENZ He wants to go home on if possible. Dr Jamar Duggan (1) Abdominal pain Abdominal location: epigastric Qualified Code(s): R10.13 - Epigastric pain
[2020-10-17] MEDS ORDERED: amLODIPine BESYLATE 5 MG TAB PO ONE (17:47)
[2020-10-17] MEDS ORDERED: STAT IV Infusion **Titration per Protocol STA (17:48)
--- NOTE | 2020-10-17 17:50 | CT Scan Report ---
CT angio abdomen pelvis w con CLINICAL HISTORY: 64 years-old Male with abdominal pain, a flutter, ? mesenteric infarct patient p resents with acute upper abdominal pain COMPARISON STUDY: None TECHNIQUE: Following the IV administration of 116 cc of Optiray 320, CT angiogram of the abdomen and pelvis was performed from the lung bases the proximal femora. Images are reviewed in the axial, sagit amish, and coronal planes. 3-D MIPS images are created and assessed. All measurements were obtained acc ording to NASCET criteria. IV contrast was administered without complication. A dose lowering techni que was utilized adhering to the principles of ALARA. CT DOSE: 789.10 mGy.cm FINDINGS: CTA: Moderate mixed plaque of the abdominal aorta without aneurysm or dissection. The celiac trunk, and michael perior mesenteric arteries are widely patent. Atheromatous plaque at the origin of the inferior mesen teric artery results in moderate stenosis, best seen on the sagittal images. The bilateral renal swapna alexa are also patent and unremarkable. There is an accessory right-sided renal artery of the inferior pole. The common and external iliac arteries are widely patent. Atheromatous plaque at the origin of the left internal iliac artery results in approximately 50% luminal narrowing. The right internal il iac arteries widely patent. CT ABDOMEN/PELVIS: Partially imaged mild patchy groundglass densities of the basal right lower lobe. No pneumatosis or p neumoperitoneum. Imaged inferior cardiac chambers are unremarkable. The imaged spleen, pancreas, adre nal glands and gallbladder are unremarkable. Hepatic steatosis. Mild nonspecific bilateral perinephric stranding. Mild cortical scarring and parenchymal thinning of the superior pole right kidney. No urolith or obstructive uropathy. Mild prostamegaly. Unremarkable u rinary bladder. There is no adenopathy. No bowel obstruction or bowel wall thickening. Colonic divert iculosis without acute diverticulitis. No ascites or mesenteric inflammation. Normal appendix. Tiny f at filled periumbilical hernia. Unremarkable soft tissues. Asymmetric atrophy of the distal left ilio psoas psoas. There is a large bony excrescence involving the medial aspect of the proximal femur inte rtrochanteric and subtrochanteric distribution measuring up to approximately 6.8 x 6.0 x 4.4 cm which causes mass effect on the iliopsoas psoas. There is mild osteoarthritis of the bilateral hips. Mild lumbar levoscoliosis. No acute fracture. IMPRESSION: 1. Moderate mixed plaque of the abdominal aorta without aneurysm or dissection. 2. Moderate luminal narrowing at the origin of the inferior mesenteric artery. No high-grade stenosis or arterial occlusion identified. 3. Partially imaged mild patchy bibasilar groundglass densities of the basal right lower lobe are augustina picious for infectious or inflammatory pneumonitis. Correlate with Covid status. 4. No bowel obstruction or bowel wall thickening. Normal appendix. 5. Colonic diverticulosis. 6. Large pedunculated bony excrescence suggestive of an osteochondroma involves the proximal left fem ur. ACT 112: Negative or not required by law. The above report was generated using voice recognition software. It may contain grammatical, syntax o r spelling errors. Electronically signed by: John Fernandez M.D. 10/17/2020 5:49 PM
[2020-10-17] MEDS: METOPROLOL TARTRATE 25 MG TAB PO SCH (17:53)
[2020-10-17] MEDS ORDERED: niCARdipine 25 MG in SODIUM CHLORIDE 0.9% 240 ML IV SCH ×2 (18:00→18:15)
[2020-10-17 20:19] LABS: C Reactive Protein 2.38 mg/dl (0-0.29); Ferritin 1569.7 ng/ml (8-388)
[2020-10-17 20:57] LABS: D Dimer 460 ug/L FEU (0-500)
[2020-10-17] MEDS ORDERED: LORazepam 1 MG/2 ML VIAL IV PRN (22:52)
[2020-10-17] MEDS ORDERED: ATIVAN IV ALCOHOL WITHDRAWL IV PRN (22:52)
[2020-10-17] MEDS ORDERED: LORazepam 3 MG/6 ML VIAL IV PRN (22:52)
[2020-10-17] MEDS ORDERED: LORazepam 2 MG/4 ML VIAL IV PRN (22:52)
[2020-10-17] MEDS ORDERED: ACETAMINOPHEN 325 MG TAB PO PRN (22:52)
[2020-10-18] MEDS: FOLIC ACID 1 MG TAB PO SCH ×2 (00:25→08:18)
[2020-10-18] MEDS: THIAMINE HCL 100 MG TAB PO SCH ×2 (00:25→08:18)
[2020-10-18] MEDS: METOPROLOL TARTRATE 25 MG TAB PO SCH ×4 (00:25→17:20)
--- NOTE | 2020-10-18 07:11 | Ultrasound Report ---
BILIARY ULTRASOUND CLINICAL HISTORY: abdominal pain COMPARISON STUDY: Abdominal CT scan dated 10/17/2020 FINDINGS: The pancreas appear normal as visualized. The liver was of increased echogenicity suggesting hepatic steatosis. No focal masses are visualized. There is no ductal dilatation. The common bile duct measured 2 mm. The technologist reports a negativ e sonographic Anderson sign. There is trace sludge within the gallbladder. No calculi were visualized. There is no right-sided hydronephrosis. IMPRESSION: 1. Equivocal trace sludge within the gallbladder 2. Increased hepatic echogenicity, likely representing hepatic steatosis 3. Otherwise normal biliary ultrasound. No ductal dilatation. ACT 112: Negative or not required by law. Electronically signed by: Christiano Nair M.D. 10/18/2020 7:10 AM
[2020-10-18 08:15] LABS: BUN Creatinine Ratio 14.7 (10-20); Blood Urea Nitrogen 16 mg/dl (7-18); Calcium 8.9 mg/dl (8.5-10.1); Carbon Dioxide 25 mmol/L (21-32); Chloride 109 mmol/L (98-107); Creatinine Clr Calc Pharmacy 81.9 ml/min; Est GFR (African American) 85.2; Est GFR (Non-African American) 73.5; Glucose 111 mg/dl (70-99); Potassium 3.7 mmol/L (3.5-5.1); Sodium 140 mmol/L (136-145)
[2020-10-18 08:16] LABS: Hemoglobin 14.3 g/dL (14.0-18.0); Mean Corpuscular Hemoglobin 31.1 pg (25-34); Mean Corpuscular Volume 91.3 fL (80-100); Mean Platelet Volume 11.3 fL (7.4-10.4); Platelet Count 143 K/uL (130-400); RDW Coefficient of Variation 12.7 % (11.5-14.5); RDW Standard Deviation 42.6 fL (36.4-46.3); White Blood Count 3.66 K/uL (4.8-10.8)
[2020-10-18] MEDS: amLODIPine BESYLATE 5 MG TAB PO SCH (08:18)
[2020-10-18] MEDS: PANTOprazole 40 MG TAB PO SCH (08:18)
[2020-10-18 08:19] LABS: Troponin I < 0.015 ng/ml (0-0.045)
[2020-10-18] MEDS: ENOXAPARIN INJ 40 MG/0.4 ML SYR SQ SCH (08:19)
[2020-10-18] MEDS ORDERED: POTASSIUM CHLORIDE CRTAB 20 MEQ TABCR PO STA (08:43)
--- NOTE | 2020-10-18 08:43 | Cardiology Progress Note ---
Date of Service October 18, 2020 Assessment & Plan (1) COVID-19: Due to review of systems findings yesterday including "head cold symptoms ", joint aches, and diarrhea, there was clinical concern for the patient having underlying COVID-19 infection despite his negative antigen test. Follow up PCR was positive. -He describes minimal nasal congestion symptoms, no chest pain or shortness of breath, and his oxygen saturations are 96% on room air at present. -Continue observation, supportive care. (2) Hypertensive emergency: Hypertensive emergency based on associated findings of tachycardia with ST segment depression. Serial troponin I levels are negative. Blood pressure has trended toward improvement, but is still elevated. He has a known history of hypertension, and has been off medications probably for at least 5 years. Continue metoprolol plus amlodipine. Patient is known to ingest a mild to moderate amount of alcohol on a daily basis, and is certainly at risk for withdrawal, therefore he is also being treated with lorazepam. (3) PSVT (paroxysmal supraventricular tachycardia): Based on my review of telemetry, my initial impression is that the patient was having episodes of supraventricular tachycardia, although atrial flutter and less likely atrial fibrillation possibilities. In my experience, atrial arrhythmias has certainly been observed manifestation of patients with COVID-19 infection. Continue metoprolol. Telemetry reveals sinus rhythm at 75 bpm, 1 recurrent brief run of SVT, 22 beats in duration, 180 bpm, observed on 10/17/2028 2223 hrs. Serial troponins negative thus far, no symptoms suggestive of unstable angina described by phone this morning. (4) Dyslipidemia: CT of the abdomen revealed atherosclerosis of the abdominal aorta without aneurysm or dissection. Ultrasound findings suggest hepatic steatosis. We will proceed with adding a lipid panel onto his morning labs from this morning. Hold off on statin therapy for now, given muscle aches related to COVID. Admission and Anticipated Discharge Date Admission Date: October 17, 2020 Subjective I spoke to the patient by telephone, and reviewed the events from overnight with his nurse by phone. He is feeling much improved. He has very minimal residual abdominal discomfort. Denies chest pain or shortness of breath. Blood pressure is still elevated, most recent reading of 177/109, but trending toward significant improvement compared to arrival yesterday. Currently on telemetry sinus rhythm at 75 bpm is present, 1 additional episode of narrow complex tachycardia was observed on telemetry overnight with a 22 beat run of what appears to be SVT at 180 bpm which occurred at 2223. Review of Systems Review of Systems: All systems reviewed & are unremarkable except as noted in HPI & below Physical Exam Physical Exam: Temp Pulse Resp BP Pulse Ox 37 C 80 16 177/109 H 96 10/18/20 07:22 10/18/20 07:22 10/18/20 07:22 10/18/20 07:22 10/18/20 07:22 -No in person physical exam performed today. Based on phone conversation, patient describes that he is feeling comfortable and not in distress Pulmonary: No conversational dyspnea Neurologic: Cognitively intact Results & Data ([facility]) Vital Signs (Past 12 Hours) Vital Signs Temp Pulse Pulse Resp BP BP BP 10/18/20 07:22 37 C 80 16 176/102 H 177/109 H 10/18/20 05:56 84 142/89 H 10/18/20 04:02 36.6 C 77 18 166/89 H 10/18/20 00:31 85 159/99 H 10/18/20 00:06 36.9 C 86 18 165/104 H 10/18/20 00:00 83 10/17/20 23:21 88 20 145/84 H 10/17/20 23:01 88 20 10/17/20 23:00 86 21 145/84 H 10/17/20 22:31 91 H 20 10/17/20 22:30 91 H 18 162/100 H 10/17/20 22:01 89 18 10/17/20 22:00 91 H 20 167/103 H 10/17/20 21:30 90 18 161/96 H 10/17/20 21:01 94 H 34 H 10/17/20 21:00 95 H 25 H 152/92 H Pulse Ox 10/18/20 07:22 96 10/18/20 05:56 10/18/20 04:02 95 10/18/20 00:31 95 10/18/20 00:06 97 10/18/20 00:00 10/17/20 23:21 94 10/17/20 23:01 94 10/17/20 23:00 96 10/17/20 22:31 96 10/17/20 22:30 95 10/17/20 22:01 10/17/20 22:00 10/17/20 21:30 98 10/17/20 21:01 10/17/20 21:00 Laboratory Results Cardiac Enzymes 10/17/20 10/17/20 10/18/20 Range/Units 14:22 20:30 07:12 AST (15-37) U/L Troponin I < 0.015 < 0.015 < 0.015 (0-0.045) ng/ml CBC 10/17/20 10/18/20 Range/Units 14:22 07:12 WBC 3.36 L 3.66 L (4.8-10.8) K/uL RBC 4.58 L 4.60 L (4.7-6.1) M/uL Hgb 14.5 14.3 (14.0-18.0) g/dL Hct 41.2 L 42.0 (42-52) % Plt Count 160 143 (130-400) K/uL Neut # (Auto) 1.99 (1.4-6.5) K/uL Lymph # (Auto) 0.93 L (1.2-3.4) K/uL Grundy # (Auto) 0.42 (0.11-0.59) K/uL Eos # (Auto) 0.01 (0-0.5) K/uL Baso # (Auto) 0.01 (0-0.2) K/uL Comprehensive Metabolic Panel 10/17/20 10/17/20 10/18/20 Range/Units 14:22 16:50 07:12 Sodium 137 140 (136-145) mmol/L Potassium 3.6 3.7 (3.5-5.1) mmol/L Chloride 108 H 109 H (98-107) mmol/L Carbon Dioxide 21 25 (21-32) mmol/L BUN 21 H 16 (7-18) mg/dl Creatinine 1.20 1.07 (0.6-1.4) mg/dl Glucose 132 H 111 H (70-99) mg/dl Calcium 8.4 L 8.9 (8.5-10.1) mg/dl AST (15-37) U/L ALT 41 (12-78) U/L Alkaline Phosphatase 84 (45-117) U/L Total Protein 7.5 (6.4-8.2) gm/dl Albumin 3.3 L (3.4-5.0) gm/dl Intake and Output 10/17/20 10/18/20 10/18/20 22:59 06:59 14:59 Intake Total 1130 / 1180 50 / 1180 Output Total 250 / 250 150 / 150 Balance 1130 / 930 -200 / 930 -150 / -150 Intake: IV 1130 / 1130 0 / 1130 Nss 1000ML 1,000 ml @ 999 mls/ 1000 / 1000 hr IV .Q1H1M SEGUNDO Rx#:[id number] Cardene 25 mg In Nss 240 ml @ 0 130 / 130 0 / 130 MG/HR IV .Q0M SEGUNDO Rx#:[id number] Oral 50 / 50 Output: Urine 250 / 250 150 / 150 Other: Weight 93.1 kg 91.9 kg Weight Measurement Method Built in [facility]
[2020-10-18 09:35] LABS: Chol HDL Ratio 4; Cholesterol 178 mg/dl (0-200); HDL Cholesterol 41 mg/dl; LDL Cholesterol Calculated 103 mg/dl; Triglycerides 172 mg/dl (0-150); VLDL Cholesterol 34 mg/dl
--- NOTE | 2020-10-18 17:59 | Hospitalist Progress Note ---
Date of Service October 18, 2020 Assessment & Plan (1) COVID-19: -CTA ABD/pelvis noted bibasilar groundglass opacities consistent with COVID-19 infection -COVID-19 PCR positive -Currently saturating 96% on room air, does not meet criteria for dexamethasone or remdesivir - D-dimer negative -cont supportive care (2) Hypertensive emergency: -Patient presenting from home with reports of fatigue and epigastric abdominal pain -History of hypertension however has not seen a healthcare provider in several years and self stopped amlodipine -In the ED, systolic blood pressure was persistently elevated > 200 despite IV labetalol -required nicardipine drip/discontinued now -on P.o. metoprolol tartrate 25 mg every 6 hours, amlodipine 5 mg daily - BP improved to 143/91 appreciate input from Cardiology (3) PSVT (paroxysmal supraventricular tachycardia): -While in the ED, developed narrow complex tachycardia with rate of 185 -SVT versus atrial fibrillation/flutter -Received adenosine 6 mg IV and labetalol 10 mg IV -Heart rate remains ~ 100 -om PO metoprolol as above -serial troponin ordered -Cardiology consult appreciated pt has significant family hx of premature CAD 1. Father had [place] at age 50's /sudden cardiac due to [place] 2. Uncle ( dad's brother ) [place] at age late 40's / 3 Aunt ( dad's sister ) [place] at age 60's pt will need cardiac work up -echo , stress test , risk factor modification : after complete recovery form COVID 19 infection Periodic follow up with cardiology started on Aspirin 81 mg daily beta liliam as outlined above (4) Alcohol abuse: updated : pt has been drinking heavily for past 7-8 yrs 4-6 beer daily no hospital admission with alcohol withdrawal and pt hardly skips drinking./never been to rehab or seek counselling for alcohol addiction ordered for [facility] alcohol withdrawal protocol CT abdomen/Liver USG_ no evidence of alcoholic cirrhosis D/w pt his risk for coronary heart disease , stroke , liver failure gets exponentially high -with alcohol abuse D/w pt regarding alcohol rehab/and utilizing out pt resources for alcohol abuse pt does not appear to be motivated or having good insight regarding his heavy drinking and health issues in denial that he drinks excessively eager to be home , wants to use out patient counselling (5) Abdominal pain: -resolved tolerating diet CTA ABD/pelvis negative for acute intra-abdominal findings - RUQ US-no acute pathology -Continue home PPI (6) Osteochondroma: -Large pedunculated bony excrescence suggestive of an osteochondroma involves the proximal left femur noted on CTA abd/pelvis usually benign finding , will slow growing mass -pt reports of occasional pain and discomfort on left hip -does not bother him much in his activities Out pt surveillance CT HIP follow up in a year out patient follow up with Orthopedics for surgical treatment if symptomatic- pain on left hip , limiting activities updated over phone all questions answered (7) DVT prophylaxis: pt has -SQ Lovenox per COVID 19 DVT Prophylaxis protocol FULL CODE DISPOSITION : expected to be discharged home when medically stable social service consult for out patient alcohol rehab resouces Admission and Anticipated Discharge Date Admission Date: October 17, 2020 Subjective FOLLOW UP VISIT FOR ABDOMINAL PAIN /TACHYCARDIA /COVID 19 : resting comfortably in bed denies of any feeling of palpitation , dizzy spell shortness of breath or chest heaviness Review of Systems Review of Systems: All systems reviewed & are unremarkable except as noted in HPI & below Physical Exam Constitutional: WD/WN, vitals as above Eyes: + anicteric sclerae ENMT: external ear and nose normal, oropharynx normal Neck: trachea midline, no thyromegaly Respiratory: Auscultation: + diminished lung sounds Cardiovascular: Rate/Rhythm: regular rhythm and + tachycardic Extremities: no edema Gastrointestinal (Abdomen): Percussion/Palpation: abdomen soft; abdomen nontender Musculoskeletal: no cyanosis or clubbing, extremities motor strength 5/5 Skin: no rashes, warm and dry Neurologic: PERRL, EOMI, accommodation nl, no face palsy, no dysarthria Psychiatric: A+Ox3, euthymic affect Results & Data Results & Data ([facility]) Vital Signs (Past 12 Hours) Vital Signs Temp Pulse Resp BP BP Pulse Ox 10/18/20 15:29 36.9 C 83 18 143/91 H 96 10/18/20 11:31 37 C 85 18 160/90 H 97 10/18/20 07:22 37 C 80 16 176/102 H 177/109 H 96 10/18/20 05:56 84 142/89 H Diagnostic Findings CXR IMPRESSION: Questionable faint peripheral densities within the mid lung zones may be due to the overlapping ribs. Consider follow-up PA and lateral views the chest for further evaluation. CTA ABD/PELVIS IMPRESSION: 1. Moderate mixed plaque of the abdominal aorta without aneurysm or dissection. 2. Moderate luminal narrowing at the origin of the inferior mesenteric artery. No high-grade stenosis or arterial occlusion identified. 3. Partially imaged mild patchy bibasilar groundglass densities of the basal right lower lobe are suspicious for infectious or inflammatory pneumonitis. Correlate with Covid status. 4. No bowel obstruction or bowel wall thickening. Normal appendix. 5. Colonic diverticulosis. 6. Large pedunculated bony excrescence suggestive of an osteochondroma involves the proximal left femur. (1) Abdominal pain Abdominal location: epigastric Qualified Code(s): R10.13 - Epigastric pain
[2020-10-19] MEDS: METOPROLOL TARTRATE 25 MG TAB PO SCH ×2 (00:51→06:35)
[2020-10-19] MEDS: THIAMINE HCL 100 MG TAB PO SCH (08:15)
[2020-10-19] MEDS: PANTOprazole 40 MG TAB PO SCH (08:16)
[2020-10-19] MEDS: ENOXAPARIN INJ 40 MG/0.4 ML SYR SQ SCH (08:16)
[2020-10-19] MEDS: amLODIPine BESYLATE 5 MG TAB PO SCH (08:16)
[2020-10-19] MEDS: FOLIC ACID 1 MG TAB PO SCH (08:16)
--- NOTE | 2020-10-19 08:52 | Cardiology Progress Note ---
Date of Service October 19, 2020 Assessment & Plan (1) COVID-19: No subjective shortness of breath, just "head cold" symptoms. Abdominal discomfort resolved. No hypoxia , pulse ox 98% on RA (2) Hypertensive emergency: BP improved. Likely due to distress from acute viral illness, underlying HTN (off meds for years), and having ceased daily alcohol use due to feeling ill. Transition to metoprolol succinate 50 mg daily, first dose now. Diltiazem CD 120 mg daily, rather than amlodipine for HR and BP control. -had amlodipine today, so start diltiazem tomorrow. (3) PSVT (paroxysmal supraventricular tachycardia): SR at range of 88-90 bpm noted at rest at present. Had two asymptomatic runs of SVT, 180 bpm 10/19/20 at 1 am, 3:48 am that terminated spontaneously. -Metoprolol succinate 50 mg daily. Diltiazem CD 120 mg daily. ASA 81 mg daily. Plan for outpatient echocardiogram and cardio follow up in about 1 month. (4) Dyslipidemia: LDL 103 . No statin necessary. DISPOSITION: clinically improved. Await labs, EKG results. Possible discharge to home. Consider discharge on shor term Lovenox 40 mg daily for DVT prophylaxis. CDC guidelines recommend home isolation at least 10 days since symptoms first appeared and at least 24 hours with no fever without fever reducing medication. Given severity of his illness, isolation 10 to 20 days post symptom onset recommended prior to returning to work, especially given the nature of his occupation. Admission and Anticipated Discharge Date Admission Date: October 17, 2020 Subjective Spoke to patient on phone and spoke to his nurse, Jeniffer, by phone. Pt feels well. No subjective chest pain, palpitations, or shortness of breath. Notes ongoing "head cold symptoms". Review of Systems Review of Systems: All systems reviewed & are unremarkable except as noted in HPI & below Physical Exam Physical Exam: Temp Pulse Resp BP Pulse Ox 36.7 C 81 18 139/86 98 10/19/20 07:35 10/19/20 07:35 10/19/20 07:35 10/19/20 07:35 10/19/20 07:35 No in person physical examination performed Pulm: no conversational shortness of breath on telephone. No cough. Neuro: cognitively intact, conversant. Results & Data ([facility]) Vital Signs (Past 12 Hours) Vital Signs Temp Pulse Resp BP Pulse Ox 10/19/20 07:35 36.7 C 81 18 139/86 98 10/18/20 23:37 37.2 C 80 16 147/88 H 95 Laboratory Results Labs pending EKG Pending Telemetry as noted in "plan"
[2020-10-19] MEDS ORDERED: METOPROLOL SUCC 50MG EXT REL TAB PO SCH (09:00)
[2020-10-19] MEDS ORDERED: ASPIRIN 81 MG ECTAB PO SCH (09:00)
--- NOTE | 2020-10-19 10:10 | Electrocardiogram Report ---
Test Reason : Blood Pressure : / mmHG Vent. Rate : 086 BPM Atrial Rate : 086 BPM P-R Int : 168 ms QRS Dur : 082 ms QT Int : 366 ms P-R-T Axes : 007 057 058 degrees QTc Int : 437 ms Normal sinus rhythm Normal ECG When compared with ECG of 17-OCT-2020 14:56, Vent. rate has decreased BY [address] no longer depressed in Inferior leads ST no longer depressed in Lateral leads T wave amplitude has increased in Anterolateral leads Confirmed by Jose Luis Martines ([id number]) on 10/19/2020 10:09:19 AM Referred By: REFERRED SELF Confirmed By:Jose Luis Martines
--- NOTE | 2020-10-19 12:32 | Discharge Summary ---
Date of Service October 19, 2020 Admission HPI Per Admitting Provider 64-year-old male with PMH dyslipidemia, HTN, GERD, and other problems listed below who presents to the ED for evaluation of abdominal pain. Patient has not been seen by a medical provider in the past several years. Previously had been prescribed atorvastatin and amlodipine however has not taken them for "quite a long time". Patient reports feeling sick for the past 1 week. Reports generalized fatigue, chills, muscle aches. 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 Patient also reports intermittent abdominal "quivering". He has had some nausea and poor appetite. Reports one episode of diarrhea this morning. He ate a chicken cheese steak around 1030 and shortly after, developed epigastric pain that radiated into his back. Patient denies chest pain and palpitations. No shortness of breath, cough, sputum production. No lightheadedness, dizziness, diaphoresis, syncopal events. Denies urinary symptoms. While in the ED, patient developed narrow complex tachycardia with rate 185. He was also found to be significantly hypertensive with systolic blood pressures > 200. Patient received adenosine 6 mg IV and labetalol 10 mg IV with some improvement in heart rate however no improvement in blood pressure. Patient received an additional dose of labetalol 10 mg IV and blood pressure remains elevated. Patient will be started on nicardipine drip and transferred to ICU for further management. Principal Diagnosis COVID-19 infection Tachycardia Hypertensive urgency Alcohol abuse Discharge Exam Constitutional WD/WN, vitals as above Eyes + anicteric sclerae ENMT external ear and nose normal, oropharynx normal Neck trachea midline, no thyromegaly Respiratory + cough Auscultation: + diminished lung sounds Cardiovascular Rate/Rhythm: regular rhythm and + tachycardic Extremities: no edema Gastrointestinal (Abdomen) Percussion/Palpation: abdomen soft; abdomen nontender Musculoskeletal no cyanosis or clubbing, extremities motor strength 5/5 Skin no rashes, warm and dry Neurologic PERRL, EOMI, accommodation nl, no face palsy, no dysarthria Psychiatric A+Ox3, euthymic affect Discharge Data Allergies Allergy/AdvReac Type Severity Reaction Status Date / Time Penicillins Allergy HIVES Verified 10/17/20 15:33 Consultations 10/17/20 15:18 ED Decision to Admit Stat 10/17/20 22:52 Consult Cardiology Routine Ordered Studies 10/17/20 15:56 US gallbladder Urgent 10/17/20 16:23 CT angio abdomen pelvis w con Stat Hospital Course (1) COVID-19: Veins clinically stable no cough fever or shortness of breath, ambulated multiple times on the hallway without any dyspnea on exertion Admitted with abdominal discomfort GI symptoms -CT abdomen pelvis ordered: Lungs: Bibasilar groundglass opacities consistent with COVID-19 infection -COVID-19 PCR positive -Currently saturating 96% on room air, does not meet criteria for dexamethasone or remdesivir - D-dimer negative -Clinically normal respiratory status, stable to be discharged home (2) Hypertensive emergency: -Patient presenting from home with reports of fatigue and epigastric abdominal pain -History of hypertension however has not seen a healthcare provider in several years and self stopped amlodipine -In the ED, systolic blood pressure was persistently elevated > 200 despite IV labetalol -required nicardipine drip/discontinued now - Appreciate input from cardiology: Hypertensive urgency possible secondary to multiple causes alcohol abuse/withdrawal, underlying uncontrolled hypertension Beta-liliam dose adjusted to metoprolol succinate 50 mg daily prescription sent to pharmacy Added diltiazem CD 120 mg daily Given patient's significant underlying risk for future coronary artery disease, hypertensive cardiomyopathy, will need to follow-up with cardiology in 1 month for resting echo and cardiac stress test. Pressure and heart rate much improved today, discussed with cardiology stable to be discharged home with above medication regimen (3) PSVT (paroxysmal supraventricular tachycardia): -While in the ED, developed narrow complex tachycardia with rate of 185 -Heart rate remains sinus around 90 at rest, noted to be tachycardic with activity. Patient is very anxious, also possible underlying alcohol withdrawal, patient reports he had not drink alcohol for the last 5 days. Medication changed as outlined above metoprolol 50 mg daily/diltiazem CD 120 mg daily pt has significant family hx of premature CAD 1. Father had [place] at age 50's /sudden cardiac due to [place] 2. Uncle ( dad's brother ) [place] at age late 40's / 3 Aunt ( dad's sister ) [place] at age 60's Cardiology follow-up as outlined above, started on aspirin 81 mg daily, does not need to start on statin LDL is 103, does not have any documented coronary artery disease (4) Alcohol abuse: History of drinking heavily for past 7-8 yrs 4-6 beer daily no hospital admission with alcohol withdrawal per : Never experienced withdrawal pt hardly skips drinking for 1 day ./never been to rehab or seek counselling for alcohol addiction Treated with [facility] alcohol withdrawal protocol No sign or symptoms of active withdrawal at present CT abdomen/Liver USG_ no evidence of alcoholic cirrhosis D/w pt his risk for coronary heart disease , stroke , liver failure gets exponentially high -with alcohol abuse D/w pt regarding alcohol rehab/and utilizing out pt resources for alcohol abuse pt does not appear to be motivated or having good insight regarding his heavy drinking and health issues in denial that he drinks excessively eager to be home , wants to use out patient counselling Discussed with over phone agreeable for outpatient alcohol counseling/rehab (5) Abdominal pain: -resolved tolerating diet CTA ABD/pelvis negative for acute intra-abdominal findings - RUQ US-no acute pathology -Continue home PPI (6) Osteochondroma: -Large pedunculated bony excrescence suggestive of an osteochondroma involves the proximal left femur noted on CTA abd/pelvis usually benign finding , will slow growing mass -pt reports of occasional pain and discomfort on left hip -does not bother him much in his activities Out pt surveillance CT HIP follow up in a year out patient follow up with Orthopedics for surgical treatment if symptomatic- pain on left hip , limiting activities updated over phone all questions answered (7) DVT prophylaxis: pt has -SQ Lovenox per COVID 19 DVT Prophylaxis protocol pt is ambulatory , will not need continued DVT prophylaxis on discharge FULL CODE DISPOSITION : Stable to be discharged home today. Total Time Total Time Spent Total Time Spent (In Minutes): Approximately 35 minutes Total Time Includes: Discharge Planning, Medication Reconciliation and Communication With Other Providers Discharge Plan Discharge Items Patient Disposition: Home - Self-Care Reason For Visit: ARRYTHMIA Discharge Diagnosis: COVID-19 infection Tachycardia Hypertensive urgency Alcohol abuse Activity: Resume your previous activity Non-emergency contact: Primary Care Provider Call non-emergency contact if: you have any medication questions Follow-up/Referrals: Freddy Talamantes DO [Simulation Educator] - (outpatient echocardiogram and cardio follow up in about 1 month. Please call the office to scheudle this appointment.) Karthik Davis MD [Primary Care Provider] - (Hospital follow-up with Dr. Davis in a week office will call you with appointment) Diet: Heart Healthy and Low Sodium (2gm) Addtl Attending Provider Instructions: You have high risk for future heart attack, coronary artery disease: Given your risk factor for family history of premature heart attack Heavy alcohol drinking. Cardiology follow-up in 1 month you will be scheduled for echocardiogram and cardiac stress test . It is very important for you to quit drinking alcohol to prevent future severe health consequences: permanent liver damage, heart attack, stroke You were discharged with 2 new blood pressure medications: 1. Metoprolol succinate 50 mg 1 tablet daily. 2. Diltiazem CD 120 mg 1 tablet daily You are asked to start taking low-dose aspirin 81 mg daily prevent future risk of heart attack and stroke. 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 You should restrict activities outside your home, except for getting medical care. Do not go to work, school, or public areas. Avoid using public transportation, ride-sharing, or taxis. Separate yourself from other people and animals in your home People: As much as possible, you should stay in a specific room and away from other people in your home. Also, you should use a separate bathroom, if available. Animals: You should restrict contact with pets and other animals while you are sick with COVID-19, just like you would around other people. Although there have not been reports of pets or other animals becoming sick with COVID-19, it is still recommended that people sick with COVID-19 limit contact with animals until more information is known about the virus. When possible, have another member of your household care for your animals while you are sick. If you are sick with COVID-19, avoid contact with your pet, including petting, snuggling, being kissed or licked, and sharing food. If you must care for your pet or be around animals while you are sick, wash your hands before and after you interact with pets and wear a face mask. Call ahead before visiting your doctor If you have a medical appointment, call the healthcare provider and tell them that you have or may have COVID-19. This will help the healthcare providers office take steps to keep other people from getting infected or exposed. Wear a face mask You should wear a face mask when you are around other people (e.g., sharing a room or vehicle) or pets and before you enter a healthcare providers office. If you are not able to wear a face mask (for example, because it causes trouble breathing), then people who live with you should not stay in the same room with you, or they should wear a face mask if they enter your room. Cover your coughs and sneezes Cover your mouth and nose with a tissue when you cough or sneeze. Throw used tissues in a lined trash can. Immediately wash your hands with soap and water for at least 20 seconds or, if soap and water are not available, clean your hands with an alcohol-based hand urgent care physician assistant that contains at least 60% alcohol. Clean your hands often Wash your hands often with soap and water for at least 20 seconds, especially after blowing your nose, coughing, or sneezing; going to the bathroom; and before eating or preparing food. If soap and water are not readily available, use an alcohol-based hand urgent care physician assistant with at least 60% alcohol, covering all surfaces of your hands and rubbing them together until they feel dry. Soap and water are the best option if hands are visibly dirty. Avoid touching your eyes, nose, and mouth with unwashed hands. Avoid sharing personal household items You should not share dishes, drinking glasses, cups, eating utensils, towels, or bedding with other people or pets in your home. After using these items, they should be washed thoroughly with soap and water. Clean all high-touch surfaces everyday High touch surfaces include counters, tabletops, doorknobs, bathroom fixtures, toilets, phones, keyboards, tablets, and bedside tables. Also, clean any surfaces that may have blood, stool, or body fluids on them. Use a household cleaning spray or wipe, according to the label instructions. Labels contain instructions for safe and effective use of the cleaning product including precautions you should take when applying the product, such as wearing gloves and making sure you have good ventilation during use of the product. Monitor your symptoms Seek prompt medical attention if your illness is worsening (e.g., difficulty breathing).Beforeseeking care, call your healthcare provider and tell them that you have, or are being evaluated for, COVID-19. Put on a face mask before you enter the facility. These steps will help the healthcare providers office to keep other people in the office or waiting room from getting infected or exposed. Ask your healthcare provider to call the local or [facility] health department. Persons who are placed under active monitoring or facilitated self- monitoring should follow instructions provided by their local health department or occupational health professionals, as appropriate. When working with your local health department check their available hours. If you have a medical emergency and need to call 911, notify the dispatch personnel that you have, or are being evaluated for COVID-19. If possible, put on a face mask before emergency medical services arrive. Discontinuing home isolation CDC guidelines recommend home isolation at least 10 days since symptoms first appeared and at least 24 hours with no fever without fever reducing medication. Given severity of his illness, isolation 10 to 20 days post symptom onset recommended prior to returning to work, especially given the nature of oc cupation. Pending Studies at Discharge: Yes Studies:: CT of Pelvis /Left Hip in 6 months with contrast to assess large Osteochondroma /tumor on left femur Stand-Alone Forms: [employer], Smoking Cessation Medications and DC Order Prescriptions: New metoprolol succinate 50 mg Tablet Extended Release 24 Hr 50 mg PO QAM 30 Days Qty: 30 RF: 3 thiamine HCl (vitamin B1) [Vitamin B-1] 100 mg Tablet 100 mg PO QAM 30 Days Qty: 30 RF: 3 aspirin 81 mg Tablet,Delayed Release (Dr/Ec) 81 mg PO QAM 30 Days Qty: 30 RF: 3 diltiazem HCl 120 mg Capsule,Extended Release 24hr 120 mg PO QAM 30 Days Qty: 30 RF: 2 folic acid 1 mg Tablet 1 mg PO QAM 30 Days Qty: 30 RF: 3 Continued omeprazole 20 mg Tablet,Delayed Release (Dr/Ec) 20 mg PO DAILY RF: 0 Discharge Orders: Discharge Order (Routine); Ordered 10/19/20 Ordered By: Rhoda Gaitan/Other Patient Handouts: Alcoholism: Myths and Facts, Alcoholism How to be Part of the ..., Alcoholism Resources, Alcoholism: Getting Help, Alcohol Addiction, Alcohol Withdrawal: What to Expect, Addiction: Getting Help, Your Heart Is at Risk, Identifying Your Heart Risks Admission Data Admit Date/Time: 10/17/20 15:59 Attending Provider: Rhoda Rossi Admit Provider: Taylor Duggan Primary Care Provider: Karthik Davis Other Providers: Taylor Duggan ; Freddy Talamantes Other Interventions: Discharge Summary Assessment (RN) Last Done: 10/19/20 12:27
[2020-10-19 13:05] LABS: BUN Creatinine Ratio 16.9 (10-20); Calcium 9.3 mg/dl (8.5-10.1); Est GFR (African American) 63.2; Est GFR (Non-African American) 54.5; Magnesium 2.2 mg/dl (1.8-2.4); Phosphorus 2.6 mg/dl (2.5-4.9); Potassium 4.1 mmol/L (3.5-5.1)
[2020-10-20] MEDS ORDERED: dilTIAZem HCL 120 MG CAPCR PO SCH (09:00)
== END 2020-10-19 13:00 | disposition home or self-care (01) | DRG 308 ==
LOC: ED 13:29 → SUATTDRO 15:59 → 2E 15:59